=== PATIENT | male | born 1945 | race Caucasian/White ===

== ENCOUNTER 2017-09-02 13:18 | Inpatient (IN) | payer OTHER, BC, MEDICARE ==
[~2017-09-02] VITALS: Ht 193 cm; Wt 107.0 kg
[2017-09-02 14:15] LABS: ABSOLUTE BASOPHIL COUNT 0.1 /CUMM (0.0-0.2); ABSOLUTE EOSINOPHIL COUNT 0.2 /CUMM (0.0-0.7); ABSOLUTE GRANULOCYTE CT 4.6 /CUMM (1.4-6.5); ABSOLUTE LYMPH COUNT 0.8 /CUMM (1.2-3.4); ABSOLUTE MONOCYTE COUNT 0.3 /CUMM (0.10-0.60); BASOPHIL % 1.2 % (0.0-2.0); EOSINOPHIL % 3.8 % (0-5); GRANULOCYTE % 76.1 % (42.2-75.2); HEMATOCRIT 42.4 % (42-52); MEAN CORPUSCULAR HGB 28.7 PG (27.0-31.0); MEAN CORPUSCULAR HGB CONC 34.1 G/DL (33.0-37.0); MEAN CORPUSCULAR VOLUME 84.2 FL (80.0-94.0); MEAN PLATELET VOLUME 10.8 FL (7.4-10.4); RBC DISTRIBUTION WIDTH 16.1 % (11.5-14.5); RED BLOOD CELL CT 5.04 /CUMM (4.70-6.10)
[2017-09-02 14:33] LABS: PLATELET COUNT 110 /CUMM (130-400)
[2017-09-02 14:34] LABS: WHITE BLOOD CELL COUNT 6.6 /CUMM (4.8-10.8)
--- NOTE | 2017-09-02 17:08 | ED AMS/SEIZURE/WEAK/DIZZY ---
History of Present Illness General Chief Complaint: Dizziness Stated Complaint: DIZZY X 2 HRS Source: patient, family Exam Limitations: no limitations Vital Signs & Intake/Output Vital Signs & Intake/Output Vital Signs Date Time Temp Pulse Resp B/P B/P Pulse O2 O2 Flow FiO2 Mean Ox Delivery Rate 09/02 2228 98.0 78 18 125/63 98 Room Air 09/02 1934 69 18 132/85 98 Room Air 09/02 1748 98.0 62 18 133/75 97 Room Air Room Air 09/02 1705 Room Air 09/02 1354 96.4 65 15 114/73 97 Room Air Room Air Allergies Coded Allergies: MDX - Clarithromycin (From Biaxin) (09/15/10) MDX - Contrast Media, Iodine Relate (Contrast Media, Iodine Related) (IV CONTRAST-HIVES 09/15/10) IV CONTRAST MDX - Dexbrompheniramine (Dexbrompheniramine) (09/22/10) MDX - Pseudoephedrine (Pseudoephedrine) (09/22/10) Uncoded Allergies: BIRDS/CATS (09/20/10) GRASS/TREES (09/20/10) MOLD (09/20/10) SEASONAL (09/20/10) Triage Note: PT TO ED FOR C/C OF SEVERE DIZZINESS X 2 HOURS. PT WAS AT [place] TO GET OUTPATIENT MRI OF BRAIN ORDERED BY DR. MAYERS TO R/O MENIERES DISEASE. PT REPORTS EPISODES OF DIZZINESS HAVE STARTED SINCE APRIL. +NAUSEA. EPISODES OF DIZZINESS LAST X 1.5 DAYS WHEN THEY OCCUR. Triage Nurses Notes Reviewed? yes Onset: Abrupt Duration: hour(s): (3), changing over time, continues in ED, getting worse Timing: single episode today Injury Environment: home Severity: moderate, severe No Modifying Factors: none HPI: 71-year-old male past medical history of neuropathy, hypothyroidism, hyperlipidemia presents for evaluation of dizziness nausea and vomiting. Patient reports that symptoms started several hours for presentation. Reports extreme dizziness with any type of movement especially his eyes or his head. He is unable to walk due to the dizziness. He also reports multiple episodes of nausea and vomiting. He has had multiple similar episodes over the past several months. He seen an ear nose and throat doctor and being worked up for Mnire's disease. There is no chest pain shortness of breath or syncope. No abdominal pain back pain or urinary symptoms. No 1 sided weakness slurred speech or blurred vision. No head trauma. Patient tried taking meclizine at 10 AM without any improvement. (Cristopher Simmons) Past History Travel History Traveled to [place] past 21 day No Medical History Any Pertinent Medical History? see below for history Neurological: NEUROPATHY EENT: NONE Cardiovascular: hyperlipidemia Endocrine: HYPOTHYROIDISM Tetanus Vaccine: 02/16/13 Surgical History Surgical History: non-contributory Psychosocial History Who do you live with Spouse Services at Home None What is your primary language Guatemalan Tobacco Use: Current Daily Use Daily Tobacco Use Amount/Type: Cigar or Pipe use daily ETOH Use: occasional use Illicit Drug Use: denies illicit drug use Family History Hx Contributory? No (Cristopher Simmons) Review of Systems Review of Systems Constitutional: Reports: no symptoms. EENTM: Reports: no symptoms. Respiratory: Reports: no symptoms. Cardiovascular: Reports: no symptoms. GI: Reports: see HPI, nausea, vomiting. Genitourinary: Reports: no symptoms. Musculoskeletal: Reports: no symptoms. Skin: Reports: no symptoms. Neurological/Psychological: Reports: see HPI (dizzy lightheaded). Hematologic/Endocrine: Reports: no symptoms. Immunologic/Allergic: Reports: no symptoms. All Other Systems: Reviewed and Negative (Cristopher Simmons) Physical Exam Physical Exam General Appearance: well developed/nourished, no apparent distress, alert, awake Head: atraumatic, normal appearance Eyes: Bilateral: normal appearance, PERRL, EOMI. Ears, Nose, Throat: normal pharynx, normal ENT inspection, hearing grossly normal Neck: normal inspection, supple, full range of motion Respiratory: normal breath sounds, chest non-tender, no respiratory distress, lungs clear Cardiovascular: regular rate/rhythm, normal peripheral pulses Peripheral Pulses: 2+ radial (R), 2+ radial (L) Gastrointestinal: soft, non-tender Back: normal inspection, normal range of motion Extremities: normal range of motion Neurologic/Psych: no motor/sensory deficits, awake, alert, oriented x 3, normal gait, normal mood/affect, cerebellar function intact, cranial nerves II through 12 grossly intact Skin: intact, normal color, warm/dry Lymphatic: no anterior cervical nolan Core Measures ACS in differential dx? No CVA/TIA Diagnosis No Sepsis Present: No Sepsis Focused Exam Completed? No (Black PA,Cristopher) Progress Differential Diagnosis: arrythmia, anemia, benign positional vertigo, CVA/stroke , dehydration, electrolyte imbalance, hypoglycemia, intracranial Hem., intracranial mass/tumor, migraine NUNEZ, pneumonia, postural hypotension, presyncope, post-traumatic vertigo, sepsis, seizure disorder, subarachnoid Hem., UTI/pyelo Plan of Care: Orders Procedure Date/time Status Nothing by Mouth 09/03 B Active Saline Lock 09/02 2137 Active Misc Message 09/02 2137 Active ED Holding Orders 09/02 2137 Active Admit to inpatient 09/02 2137 Active Vital Signs 09/02 2137 Active Code Status 09/02 2137 Active EKG 09/02 135 Active URINALYSIS 09/03 1331 Complete TROPONIN LEVEL 09/03 1331 Complete COMPREHENSIVE METABOLIC PANEL 09/03 1331 Complete CBC WITHOUT DIFFERENTIAL 09/03 1331 Complete Laboratory Tests 09/02/17 1636: Urine Color YEL, Urine Clarity CLEAR, Urine pH 6.0, Ur Specific Mclaughlin 1.020, Urine Protein NEG, Urine Ketones NEG, Urine Nitrite NEG, Urine Bilirubin NEG, Urine Urobilinogen 0.2, Ur Leukocyte Esterase NEG, Ur Microscopic EXAM NOT REQUIRED, Urine Hemoglobin NEG, Urine Glucose NEG 09/02/17 1406: Anion Gap 10, Estimated GFR > 60, BUN/Creatinine Ratio 16.3, Glucose 106 H, Calcium 9.0, Total Bilirubin 0.7, AST 18, ALT 29, Alkaline Phosphatase 52, Troponin I < 0.01, Total Protein 6.8, Albumin 3.9, Globulin 2.9, Albumin/ Globulin Ratio 1.3, CBC w Diff NO MAN DIFF REQ, RBC 5.04, MCV 84.2, MCH 28.7, MCHC 34.1, RDW 16.1 H, MPV 10.8 H, Gran % 76.1 H, Lymphocytes % 13.2 L, Monocytes % 5.7, Eosinophils % 3.8, Basophils % 1.2, Absolute Granulocytes 4.6, Absolute Lymphocytes 0.8 L, Absolute Monocytes 0.3, Absolute Eosinophils 0.2, Absolute Basophils 0.1 Patient seen and evaluated. He is here with vertigo he's had similar symptoms in the past. He is neurologically intact. His no chest pain or shortness of breath. He was supposed TO HAVE AN MRI done today ordered by his ear nose and throat doctor Dr. Mayers. However due to patient's dizziness he was unable tolerate the MRI sooner sent here for further evaluation. We'll check an MRI of the brain basic labs EKG. Patient medicated with Ativan and meclizine and Zofran. Also IV fluids. Blood work does not show any significant acute findings urinalysis negative. MRI of the brain is also not show any acute findings. Patient remains relatively intact. Attended ambulate patient multiple times however he was unable to. He had an unsteady gait he is a fall risk. If he is sent home he will likely fall creating further injury. She will be admitted to the hospital for further evaluation of gait instability and vertigo. He'll require physical therapy, case management, IV fluids, IV antiemetics, IV Ativan, meclizine, ear nose and throat. Case discussed with Dr. Mahan he agrees. Diagnostic Imaging: Viewed by Me: MRI. Discussed w/RAD: MRI. Radiology Impression: PATIENT: JOLEEN NORWOOD PRESENT AGE: 71 PATIENT ACCOUNT NO: [id number] : 43 LOCATION: [facility] ([place] ORDERING PHYSICIAN: Alida LAGUNA SERVICE DATE: 09/02/17 EXAM TYPE : MRI - MRI-HEAD W/O UZMA EXAMINATION: MR BRAIN WITHOUT CONTRAST CLINICAL INFORMATION: Distally, tinnitus and vomiting. Meniere's disease. COMPARISON: CT scan of the head 02/16/2013. TECHNIQUE: MRI of the brain without contrast was obtained using routine sequences. Evaluation is limited due to lack of intravenous contrast. FINDINGS: The VII and VIII cranial nerve complexes are normal in course and caliber. No signal abnormality is visualized within the inner ear structures on the axial T1-weighted sequence. Fluid signal is preserved within the cochlea, semicircular canals, and vestibule on the high- resolution axial CISS sequence. No cerebellopontine angle lesion is noted. No diffusion abnormality is seen. The study redemonstrates the asymmetry of the bodies of the lateral ventricles, larger on the right and unchanged. Brain parenchymal signal is unremarkable. No mass effect or midline shift is evident. No extra-axial fluid collections are noted. The brainstem and cerebellum are normal. The craniovertebral junction, marrow signal, and midline structures are normal. The visualized portions of the major intracranial flow-voids at the level of the [place] are preserved. There have been bilateral ocular lens extractions. The dural venous sinus flow-voids are maintained. The mastoid air cells and paranasal sinuses are well-aerated. IMPRESSION: 1. No acute bleeds or infarcts. No masses are demonstrated. 2. The internal auditory canals and CP angles appear unremarkable on the available images. 3. Asymmetry of the bodies of the lateral ventricles is unchanged. DICTATED BY: Gabriel Obrien MD DATE/TIME DICTATED:09/02/171802 [employer] ASSEMBLER:SINCERE DATE/TIME TRANSCRIBED:1802 CONFIDENTIAL, DO NOT COPY WITHOUT APPROPRIATE AUTHORIZATION. < Electronically signed in Other Vendor System> SIGNED BY: Gabriel Obrien MD 1811 Initial ED EKG: normal sinus rhythm, LEFT AXIS DEVIATION (Cristopher Simmons) Departure Departure Disposition: STILL A PATIENT Condition: Stable Clinical Impression Primary Impression: Vertigo Referrals: Davina Burr APRN (PCP/Family) Departure Forms: Customer Survey General Discharge Information Admission Note Spoke With: Meliton Barnard MD Documentation of Exam: Documentation of any treatments & extenuating circumstances including Concerns Regarding Discharge (functional status, medication knowledge or non-compliance, living conditions, etc.) that warrant an admission rather than observation: [ Patient is unable to ambulate despite being in the emergency department for 7 hours and receiving multiple medications. He is a fall risk. He will require physical therapy, case management, serial labs, neurology consult, ENT consult,] (Cristopher Simmons) PA/AIR CONDITIONING SERVICE TECHNICIAN Co-Sign Statement Statement: ED Attending supervision documentation- [x] I saw and evaluated the patient. I have also reviewed all the pertinent lab results and diagnostic results. I agree with the findings and the plan of care as documented in the PA's/AIR CONDITIONING SERVICE TECHNICIAN's documentation. 09/02/17, 20:36... pt with intractable vertigo, unable to ambulate despite multiple rounds of supportive medications.. merits admission, neuro consult [] I have reviewed the ED Record and agree with the PA's/AIR CONDITIONING SERVICE TECHNICIAN's documentation. [] Additions or exceptions (if any) to the PAs/AIR CONDITIONING SERVICE TECHNICIAN's note and plan are summarized below: [] (Kalli TAPIA,[place])
--- NOTE | 2017-09-02 18:12 | MRI REPORT ---
EXAMINATION: MR BRAIN WITHOUT CONTRAST CLINICAL INFORMATION: Distally, tinnitus and vomiting. Meniere's disease. COMPARISON: CT scan of the head 02/16/2013. TECHNIQUE: MRI of the brain without contrast was obtained using routine sequences. Evaluation is limited due to lack of intravenous contrast. FINDINGS: The VII and VIII cranial nerve complexes are normal in course and caliber. No signal abnormality is visualized within the inner ear structures on the axial T1-weighted sequence. Fluid signal is preserved within the cochlea, semicircular canals, and vestibule on the high-resolution axial CISS sequence. No cerebellopontine angle lesion is noted. No diffusion abnormality is seen. The study redemonstrates the asymmetry of the bodies of the lateral ventricles, larger on the right and unchanged. Brain parenchymal signal is unremarkable. No mass effect or midline shift is evident. No extra-axial fluid collections are noted. The brainstem and cerebellum are normal. The craniovertebral junction, marrow signal, and midline structures are normal. The visualized portions of the major intracranial flow-voids at the level of the [place] are preserved. There have been bilateral ocular lens extractions. The dural venous sinus flow-voids are maintained. The mastoid air cells and paranasal sinuses are well-aerated. IMPRESSION: 1. No acute bleeds or infarcts. No masses are demonstrated. 2. The internal auditory canals and CP angles appear unremarkable on the available images. 3. Asymmetry of the bodies of the lateral ventricles is unchanged.
--- NOTE | 2017-09-02 20:39 | RADIOLOGY REPORT ---
EXAMINATION: XR PORTABLE CHEST CLINICAL INFORMATION: Dizziness. CHF. COMPARISON: Chest x-ray 08/25/2013 TECHNIQUE: Portable frontal view of the chest was obtained. FINDINGS: Lungs are clear. No pulmonary vascular congestion. There is no pleural effusion. The heart size is normal. The cardiac and mediastinal contours are normal. . There are multilevel degenerative changes of dorsal spine. Orthopedic plate and screw at lower cervical spine. IMPRESSION: No acute abnormality the chest.
--- NOTE | 2017-09-02 21:16 | History & Physical ---
Maile Wisdom MD,[facility] 09/02/172115: General Information and HPI MD Statement: I have seen and personally examined JOLEEN NORWOOD and documented this H&P. The patient is a 71 year old M who presented with a patient stated chief complaint of dizziness]. Source of Information: patient, old records History of Present Illness: Patient is 70-year-old male with PMH of hypothyroidism, hypercholesterolemia, h/ o spinal surgery, L arm neuropathic pain, chronic thrombocytopenia, Left ear hearing loss presented to the ED with chief complaint of dizziness. History taking was minimally limited as patient couldn't remember his medication list or his doctors name. Briefly patient started to have severe vertigo earlier in the morning today. He noted that he was able to cut the grass and eat without any problems, however later he started to see the objects are spinning in the room. The vertigo increased with motion of the head or eyes, and was so severe that he could not walk without his wifes assistance. He also had multiple episodes of nausea and vomiting. He reported hearing loss in the left ear and tinnitus but denied any fullness. He also denied any change in vision, double vision, change in motor or SENSORY, or speech. He went to Dr Mayers (PCP Kelsey coffey, Dr douglas TENA) and was sent to have an MRI done. However he had severe vertigo and was not able to stay in the MRI center and was transferred to ED. According to patient he was having workup for Mnire disease. This was 4th episode he experienced and was very similar to the previous ones. (previous episodes: April 2017, June 2017 , last ). Review of system is negative except as noted above, no chest pain, no shortness of breathing, no upper respiratory tract infection recently, no headache. In baseline he is independent in ADLs, family history negative for similar symptoms or other pathologies except multiple mieloma in his father. He smokes 4 cigarettes for the last 40 years and eats regular food. Allergies/Medications Allergies: Coded Allergies: MDX - Clarithromycin (From Biaxin) (09/15/10) MDX - Contrast Media, Iodine Relate (Contrast Media, Iodine Related) (IV CONTRAST-HIVES 09/15/10) IV CONTRAST MDX - Dexbrompheniramine (Dexbrompheniramine) (09/22/10) MDX - Pseudoephedrine (Pseudoephedrine) (09/22/10) Uncoded Allergies: BIRDS/CATS (09/20/10) GRASS/TREES (09/20/10) MOLD (09/20/10) SEASONAL (09/20/10) Past History Travel History Traveled to [place] past 21 day No Medical History Neurological: NEUROPATHY EENT: NONE Cardiovascular: hyperlipidemia Endocrine: HYPOTHYROIDISM Tetanus Vaccine: 02/16/13 Surgical History Surgical History: Bilateral knee surgery Past Family/Social History Psychosocial History Services at Home: None ETOH Use: occasional use Illicit Drug Use: denies illicit drug use Review of Systems Review of Systems Constitutional: Reports: see HPI. Exam & Diagnostic Data Last 24 Hrs of Vital Signs/I&O Vital Signs Date Time Temp Pulse Resp B/P B/P Pulse O2 O2 Flow FiO2 Mean Ox Delivery Rate 09/02 2228 98.0 78 18 125/63 98 Room Air 09/02 1934 69 18 132/85 98 Room Air 09/02 1748 98.0 62 18 133/75 97 Room Air Room Air 09/02 1705 Room Air 09/02 1354 96.4 65 15 114/73 97 Room Air Room Air Intake & Output 09/03 0800 09/03 0000 09/02 1600 Intake Total 500 Output Total 200 Balance 300 Intake, IV 500 Output, Urine 200 Patient 238 lb Weight Weight Reported by Patient Measurement Method Physical Exam General Appearance Alert, Oriented X3, Cooperative, No Acute Distress Skin No Significant Lesion Skin Temp/Moisture Exam: Warm/Dry Sepsis Skin Exam (color): Normal for Ethnicity HEENT Atraumatic, PERRLA, EOMI, pupils reactive to light Neck No JVD Cardiovascular Normal S1, Normal S2 Lungs Clear to Auscultation, Normal Air Movement Abdomen Soft, No Tenderness Neurological Normal Speech, Strength at 5/5 X4 Ext, Cranial Nerves 3-12 NL, finger to nose positive, Romberg: lost balance with closed eyes, no nystagmus appreciated Extremities No Edema Last 24 Hrs of Labs/[place]: Laboratory Tests 09/02/17 1636: Urine Color YEL, Urine Clarity CLEAR, Urine pH 6.0, Ur Specific [place] 1.020, Urine Protein NEG, Urine Ketones NEG, Urine Nitrite NEG, Urine Bilirubin NEG, Urine Urobilinogen 0.2, Ur Leukocyte Esterase NEG, Ur Microscopic EXAM NOT REQUIRED, Urine Hemoglobin NEG, Urine Glucose NEG 09/02/17 1406: Anion Gap 10, Estimated GFR > 60, BUN/Creatinine Ratio 16.3, Glucose 106 H, Calcium 9.0, Total Bilirubin 0.7, AST 18, ALT 29, Alkaline Phosphatase 52, Troponin I < 0.01, Total Protein 6.8, Albumin 3.9, Globulin 2.9, Albumin/ Globulin Ratio 1.3, CBC w Diff NO MAN DIFF REQ, RBC 5.04, MCV 84.2, MCH 28.7, MCHC 34.1, RDW 16.1 H, MPV 10.8 H, Gran % 76.1 H, Lymphocytes % 13.2 L, Monocytes % 5.7, Eosinophils % 3.8, Basophils % 1.2, Absolute Granulocytes 4.6, Absolute Lymphocytes 0.8 L, Absolute Monocytes 0.3, Absolute Eosinophils 0.2, Absolute Basophils 0.1 Assessment/Plan Assessment: Patient is 70-year-old male presented for vertigo chronic hearing loss in left ear, occasional tinnitus ambulation limited due to imbalance PMH: hypothyroidism, hypercholesterolemia, h/o spinal surgery, L arm neuropathic pain, chronic thrombocytopenia, Left ear hearing loss VS, Ph Ex at admission: insignificant Labs at admission: BEP insignificant, C BC PLT 110 UA insignificnat Imagings at admission: Chest x-ray No acute finding Head MRI 1. No acute bleeds or infarcts. No masses are demonstrated. 2. The internal auditory canals and CP angles appear unremarkable on the available images. 3. Asymmetry of the bodies of the lateral ventricles is unchanged. Patient was admitted to floor for management of following conditions: Vertigo most likely peripheral, menier on top of DD chronic medical conditions: Low Plt - admit to GM floor - meclizine - Hold on more antihistamines with anticholinergic effect considering old age male - consider ativan if no improvement, consider old age - PT -ENT courtesy consult -Continue home medication after confirm -Consider Zofran for nausea FC Heart healthy diet (limit sodium) DVT ppx: alps As Ranked By This Provider Problem List: 1. Vertigo Core Measures/Misc (01/06) Acute Coronary Syndrome ACS Diagnosis: No Congestive Heart Failure Congestive Heart Failure Diagnosis No Cerebrovascular Accident CVA/TIA Diagnosis: No VTE (View Protocol) VTE Risk Factors Age>40 No Mechanical VTE Prophylaxis d/t N/A MechProphylax Ordered No VTE Pharm Prophylaxis d/t Medical Contraindication (low PLT) Sepsis (View protocol) Sepsis Present: No Jodi TAPIA,[facility] 09/03/17 0214: General Information and HPI Allergies/Medications Home Med list Atorvastatin Calcium 10 MG TABLET 1 TAB PO DAILY HIGH CHOLESTROL (Reported) Calcium Carbonate (Calcium) (Unknown Strength) TABLET (Unknown Dose) VITAMIN SUPPORT (Reported) Cholecalciferol (Vitamin D3) (Vitamin D3) 1,000 UNIT CAPSULE 1 CAP PO DAILY VITAMIN SUPPORT (Reported) Levothyroxine Sodium 137 MCG TABLET 1 TAB PO DAILY THYROID PROBLEMS (Reported ) Meclizine HCl 25 MG TABLET EAR PROBLEMS (Reported) Resident Review Statement Resident Statement: examined this patient, discussed with internet cafe manager, agreed with internet cafe manager, reviewed EMR data (avail), discussed with nursing Other Findings: Patient is 71-year-old male with past medical history significant for lumbar laminectomy and cervical fusion, neuropathy, hypothyroidism, hyperlipidemia, chronic thrombocytopenia, left ear hearing loss, questionable Meiniere's disease follow-up with Dr Mayers who presented to ED with chief complaint of intractable dizziness and nausea. Patient reported new onset of severe dizziness, nausea and vomiting since April 2017. He reported 3 previous episodes since April. Had hearing test positive for left side hearing loss and was scheduled for MRI head. Patient reported being in regular state of health up to this morning, was able to have regular daily activity including exercise and grass cutting and while resting later in the day started to have severe dizziness associated with nausea. Patient tried to go to the MRI appointment however was in severe distress from the vertigo and went back home. Patient was not able to stand up and hold his balance from the vertigo and was brought to ED by his daughter for evaluation. Patient denied any precipitating factors, he is very independent and active on daily basis, exercise daily without any significant dizziness. However he reported worsening dizziness with eye and head movement. Patient reported recent onset of tinnitus, denied weakness, numbness, headaches or blurry vision. Patient was prescribed meclizine however did not report any significant symptom relief. On admission vital signs temperature 96.4, pulse 65, blood pressure 114/73, saturating 97% on room air Exam Patient alert oriented 3, no neck rigidity, cranial nerves intact, motor and sensory intact 4, cerebellar function intact, Romberg sign positive Labs white blood cell 6.6, H&H 14.5/42.4, platelet 110, sodium 143, potassium 4.1, BUN/creatinine 13/0.8, UA negative Chest x-ray No acute abnormality the chest. MRI head 1. No acute bleeds or infarcts. No masses are demonstrated. 2. The internal auditory canals and CP angles appear unremarkable on the available images. 3. Asymmetry of the bodies of the lateral ventricles is unchanged. In comparison to CAT scan obtained 2013 after head injury Problem list #Vertigo associated with hearing loss, tinnitus and nausea suggestive for possible Meiniere's disease #Hypothyroidism #Neuropathy #Chronic thrombocytopenia Plan Admit to general medical floor Vitals every shift Orthostatic measurement Continue meclizine 25 mg 3 times daily Consider Ativan if symptoms persist Courtesy call to ENT Dr. Dr Mayers Check vitamin B12 and vitamin D Check liver function test PT evaluation and treat (vestibular rehabilitation) Please confirm medication a.m. for now we continue with atorvastatin and Synthroid based on reclaim history Fall risk precaution DVT prophylaxis Alps Diet heart healthy (salt restriction is recommended in pt with possible Meiniere 's disease Code full Akil TAPIA, [facility] 09/03/17 0416: Attending MD Review Statement Attending Statement Attending MD Statement: examined this patient, discuss w/resident/PA/TRACK BROOM OPERATOR, agreed w/resident/PA/TRACK BROOM OPERATOR, reviewed images, amended to note Attending Assessment/Plan: 71 yo M with h/o hypothyroidism, HLD, chronic thrombocytopenia presented to the ER for intractable dizziness, associated with nausea and vomiting. Patient has been following with Dr. Mayers for evaluation of dizziness. This is his 4th episode since Apr 2017. He has been diagnosed with left sided hearing loss and reports occasional tinnitus. There is a suspicion for Meniere's disease , hence an MRI was planned for today. However, patient could not make it to the appointment due to dizziness and unsteady gait. Symptoms are worse with position change and they last about 1-2 days when they occur. While in the ER, patient received ativan, zofran and meclizine with some relief. Vitals stable. Exam does not reveal horizontal or vertical nystagmus. Patient is able to sit up from laying position without dizziness. On standing, he is unsteady on his feet, reports dizziness. Romberg's test positive. Nonfocal neuro exam otherwise. Labs: Plt 110, glucose 106. UA negative. MRI brain: no acute bleed or infarct. Internal auditory canal and CP angles unremarkable. CXR: no acute abnormality. EKG: sinus rhythm, LAD, no acute changes. Assessment and plan: 1. Intractable vertigo, possible Meniere's disease 2. Gait instability 3. Hypothyroidism 4. Chronic thrombocytopenia of unclear etiology - Admit to General medicine - Check orthostats - Fall precautions - Initiate meclizine TID - Consult ENT Dr. Mayers - PT eval - Can add ativan or scopolamine patch as needed - Confirm and resume home meds in AM DVT ppx Alps. Full code.
--- NOTE | 2017-09-02 23:34 | Admission Certification ---
Admission Certification Certification Statement - As attending physician, I certify that at the time of - admission, based on clinical presentation, severity of - symptoms, need for further diagnostic testing and - therapeutic interventions, and risk of adverse outcomes - without in-hospital treatment, in my clinical assessment, - this patient requires an acute hospital stay for a minimum - of two nights or longer. I have also considered psychsocial - factors such as support system, advanced age, financial - issues, cognitive issues, and failed out-patient treatments, - past re-admission history, safety of patient, and lack of - compliance as applicable. Specific rationale supporting this admission is: Intractable vertigo, gait instability.
[2017-09-03] MEDS ORDERED: CALCIUM500 M1 PO (01:00)
[2017-09-03] MEDS ORDERED: MECLIZINE HCL25 MG PO (01:01)
[2017-09-03] MEDS ORDERED: VITAMIN D31000 UNI1 PO (01:01)
[2017-09-03] MEDS ORDERED: LEVOTHYROXINE137 MCG PO (01:02)
[2017-09-03] MEDS ORDERED: ATORVASTATIN CA10 M1 PO (01:02)
[2017-09-03 01:27] VITALS: BP 138/72
[2017-09-03 05:56] VITALS: BP 126/78
--- NOTE | 2017-09-03 07:23 | PN- Housestaff ---
Shane TAPIA,[facility] 09/03/17 0722: Subjective Follow-up For: Vertigo associated with hearing loss, tinnitus and nausea suggestive for possible Meiniere's disease Subjective: Mr Navarro was seen and examined this morning. Resting comfortably in bed. He is currently eating breakfast. Denies any issues overnight. States that his dizziness has markedly improved. Subsequently scheduled to work with physical therapy later today. On our second visit with the patient, he states that he feels great and would like to discharged at the soonest. His Genesis was present at bedside. Review of Systems Constitutional: Reports: see HPI. Objective Last 24 Hrs of Vital Signs/I&O Vital Signs Date Time Temp Pulse Resp B/P B/P Pulse O2 O2 Flow FiO2 Mean Ox Delivery Rate 09/03 0556 97.5 63 20 126/78 99 Room Air 09/03 0127 98.1 69 22 138/72 96 Room Air 09/02 2228 98.0 78 18 125/63 98 Room Air 09/02 1934 69 18 132/85 98 Room Air 09/02 1748 98.0 62 18 133/75 97 Room Air Room Air 09/02 1705 Room Air 09/02 1354 96.4 65 15 114/73 97 Room Air Room Air Intake & Output 09/03 1600 09/03 0800 09/03 0000 Intake Total 400 200 500 Output Total 750 200 Balance 400 -550 300 Intake, IV 0 500 Intake, Oral 400 200 Output, Urine 750 200 Patient 107.048 kg Weight Weight Reported by Patient Measurement Method Physical Exam General Appearance: Alert, Oriented X3 Skin: No Rashes HEENT: Mucous Membr. moist/pink Lymphatic: Axillary nl Cardiovascular: Regular Rate, Normal S1, Normal S2 Lungs: Clear to Auscultation Abdomen: Normal Bowel Sounds, Soft Neurological: Normal Gait, Normal Speech, Strength at 5/5 X4 Ext, Normal Tone, Sensation Intact, Cranial Nerves 3-12 NL Extremities: No Clubbing, No Cyanosis, No Edema Vascular: Normal Pulses Current Medications: Current Medications Sig/Jo Start time Last Medication Dose Route Stop Time Status Admin Atorvastatin Calcium 10 MG DAILY 09/03 0900 DCD 09/03 PO 1004 Levothyroxine Sodium 0.137 MG DAILY AC 09/03 0700 DCD 09/03 PO 0743 Lorazepam 1 MG ONCE ONE 09/02 1600 DC 09/02 IV 09/02 1601 1548 Lorazepam 0 .STK-MED ONE 09/02 1556 DC .ROUTE Meclizine HCl 25 MG TID 09/03 0900 DCD 09/03 PO 1004 Meclizine HCl 0 .STK-MED ONE 09/02 1939 DC PO Meclizine HCl 25 MG ONCE ONE 09/02 1915 DC 09/02 PO 09/02 191 193 Ondansetron HCl 0 .STK-MED ONE 09/02 1549 DC .ROUTE Ondansetron HCl 4 MG ONCE ONE 09/02 1415 DC 09/02 IV 09/02 1416 1548 Sodium Chloride 500 ML BOLUS ONE 09/02 1415 DC 09/02 IV 09/02 1514 1645 Last 24 Hrs of Lab/[place] Results Last 24 Hrs of Labs/[place]: Laboratory Tests 09/03/17 0611: Anion Gap 10, Estimated GFR > 60, BUN/Creatinine Ratio 12.9, CBC w Diff NO MAN DIFF REQ, RBC 4.80, MCV 85.4, MCH 29.0, MCHC 34.0, RDW 16.6 H, MPV 10.8 H, Gran % 62.6, Lymphocytes % 21.9, Monocytes % 8.7, Eosinophils % 6.0 H, Basophils % 0.8, Absolute Granulocytes 3.9, Absolute Lymphocytes 1.4, Absolute Monocytes 0.5, Absolute Eosinophils 0.4, Absolute Basophils 0.1 09/02/17 1636: Urine Color YEL, Urine Clarity CLEAR, Urine pH 6.0, Ur Specific [place] 1.020, Urine Protein NEG, Urine Ketones NEG, Urine Nitrite NEG, Urine Bilirubin NEG, Urine Urobilinogen 0.2, Ur Leukocyte Esterase NEG, Ur Microscopic EXAM NOT REQUIRED, Urine Hemoglobin NEG, Urine Glucose NEG 09/02/17 1406: Anion Gap 10, Estimated GFR > 60, BUN/Creatinine Ratio 16.3, Glucose 106 H, Calcium 9.0, Total Bilirubin 0.7, AST 18, ALT 29, Alkaline Phosphatase 52, Troponin I < 0.01, Total Protein 6.8, Albumin 3.9, Globulin 2.9, Albumin/ Globulin Ratio 1.3, Vitamin B12 302, 25-OH Vitamin D Total 39.7, CBC w Diff NO MAN DIFF REQ, RBC 5.04, MCV 84.2, MCH 28.7, MCHC 34.1, RDW 16.1 H, MPV 10.8 H, Gran % 76.1 H, Lymphocytes % 13.2 L, Monocytes % 5.7, Eosinophils % 3.8, Basophils % 1.2, Absolute Granulocytes 4.6, Absolute Lymphocytes 0.8 L, Absolute Monocytes 0.3, Absolute Eosinophils 0.2, Absolute Basophils 0.1 Assessment/Plan Assessment: Patient is 71-year-old male with past medical history significant for lumbar laminectomy and cervical fusion, neuropathy, hypothyroidism, hyperlipidemia, chronic thrombocytopenia, left ear hearing loss, questionable Meiniere's disease follow-up with Dr Mayers who presented to ED with chief complaint of intractable dizziness and nausea He was managed on the general medical service overnight and is subsequently requesting to be discharged later today. #Vertigo associated with hearing loss, tinnitus and nausea suggestive for possible Meiniere's disease #Hypothyroidism #Neuropathy #Chronic thrombocytopenia Plan Vitals every shift Continue meclizine 25 mg 3 times daily Consider Ativan if symptoms persist Courtesy call to ENT Dr. Dr Mayers, patient can [facility] follow up as an outpatient. Check vitamin B12 and vitamin D Check liver function test PT worked with the patient, no abnormalities on vestibular exam noted. Fall risk precaution DVT prophylaxis Alps Diet heart healthy Code full Problem List: 1. Vertigo 2. Encounter for removal of alley 3. Hyperlipidemia Pain Ratin Pain Location: No Pain Pain Goal: Remain pain free Pain Plan: Tylenol PRN Tomorrow's Labs & Rationales: No LaBS GordonBuffyalmita 09/03/17 1035: Attending MD Review Statement Attending Statement Attending MD Statement: examined this patient, discuss w/resident/PA/IT SERVICE MANAGER, agreed w/resident/PA/IT SERVICE MANAGER, discussed with family, reviewed EMR data (avail), discussed with nursing, discussed with case mgmt Attending Assessment/Plan: Dizziness /vertigo- improved remarkably. Was able to do stairs with PT and walking independently. Pt wants to go home. Will be dced home and will f/u with ENT clinic as an outpatient. pt has meclizine at home. will give him zofran prescription at discharge. d/w pt and pts at bedside the care plan. d/w pt and pts at bedside the care plan.
[2017-09-03 08:15] LABS: ABSOLUTE BASOPHIL COUNT 0.1 /CUMM (0.0-0.2); ABSOLUTE EOSINOPHIL COUNT 0.4 /CUMM (0.0-0.7); ABSOLUTE GRANULOCYTE CT 3.9 /CUMM (1.4-6.5); ABSOLUTE LYMPH COUNT 1.4 /CUMM (1.2-3.4); ABSOLUTE MONOCYTE COUNT 0.5 /CUMM (0.10-0.60); BASOPHIL % 0.8 % (0.0-2.0); GRANULOCYTE % 62.6 % (42.2-75.2); MEAN CORPUSCULAR VOLUME 85.4 FL (80.0-94.0); MEAN PLATELET VOLUME 10.8 FL (7.4-10.4); PLATELET COUNT 110 /CUMM (130-400); RBC DISTRIBUTION WIDTH 16.6 % (11.5-14.5); WHITE BLOOD CELL COUNT 6.3 /CUMM (4.8-10.8)
--- NOTE | 2017-09-03 09:38 | Patient Discharge Instructions ---
Discharge Instructions General Discharge Information You were seen/treated for: Vertigo/Dizziness Special Instructions: Please follow up with your PCP within one week. Please follow up with Dr Mayers for follow up within one week. We provided you with a referral. Acute Coronary Syndrome Inclusion Criteria At DC or during hospital stay patient has or had the following: ACS DIAGNOSIS No Discharge Core Measures Meds if any: Prescribed or Continued at Discharge Meds if any: NOT Prescribed or Continued at Discharge Congestive Heart Failure Inclusion Criteria At DC or during hospital stay patient has or had the following: CHF DIAGNOSIS No Discharge Core Measures Meds if any: Prescribed or Continued at Discharge Meds if any: NOT Prescribed or Continued at Discharge Cerebrovascular accident Inclusion Criteria At DC or during hospital stay patient has or had the following: CVA/TIA Diagnosis No Discharge Core Measures Meds if any: Prescribed or Continued at Discharge Meds if any: NOT Prescribed or Continued at Discharge Venous thromboembolism Inclusion Criteria VTE Diagnosis No VTE Type NONE VTE Confirmed by (Test) NONE Discharge Core Measures - Per Current guidelines, there needs to be overlap - treatment for the first 5 days of Warfarin therapy. - If discharged on Warfarin prior to 5 days of - overlap therapy, the patient will need to be - assessed for post discharge needs including - *Post discharge parental anticoagulation - *Warfarin and/or parental anticoagulation education - *Follow up date to check INR post discharge At least 5 days overlap therapy as Inpatient No Meds if any: Prescribed or Continued at Discharge Note: Overlap Therapy is Warfarin and Anticoagulant Meds if any: NOT Prescribed or Continued at Discharge
--- NOTE | 2017-09-03 13:25 | Discharge Summary ---
Hospital Course Allergies: Coded Allergies: Iodinated Contrast- Oral and IV Dye (IV CONTRAST - HIVES 09/03/17) clarithromycin (UNKNOWN 09/03/17) dexbrompheniramine (UNKNOWN 09/03/17) pseudoephedrine (UNKNOWN 09/03/17) Uncoded Allergies: BIRDS/CATS (09/20/10) GRASS/TREES (09/20/10) MOLD (09/20/10) SEASONAL (09/20/10) Discharge Instructions Medications at Discharge Discharge Medications: Continue taking these medications: Calcium Carbonate (Calcium) (Unknown Strength) TABLET 1 Tablet ORAL DAILY as needed for Supplement Qty = 30 Comments: NOT GIVEN IN HOSPITAL Cholecalciferol (Vitamin D3) (Vitamin D3) 1,000 UNIT CAPSULE 1 Capsule ORAL DAILY Days = 0 Comments: NOT GIVEN IN HOSPITAL Meclizine HCl (Meclizine HCl) 25 MG TABLET 1 Tablet ORAL EVERY 8 HOURS as needed for Dizziness Qty = 30 Comments: Last Taken: 09/03/17 Time: 10AM Atorvastatin Calcium (Atorvastatin Calcium) 10 MG TABLET 1 Tablet ORAL DAILY Days = 90 Comments: Last Taken: 09/03/17 Time: 10AM Levothyroxine Sodium (Levothyroxine Sodium) 137 MCG TABLET 1 Tablet ORAL DAILY Days = 90 Comments: Last Taken: 09/03/17 Time: 0740AM
== END 2017-09-03 10:31 | DRG 149 ==
LOC: ERH 13:18 → ENTRNSPT 16:25 → CMPTRNSPT 16:51 → 2NB 21:38 → ERHI 21:38 → ENRESERV 09-03 00:19 → CANRESERV 09-03 00:19 → ENRESERV 09-03 00:20 → 2NB 09-03 01:02 → ENPENDDIS 09-03 10:11 → ENTRNSPT 09-03 10:21 → EDTRNSPTSTS 09-03 10:25 → EDTRNSPT 09-03 10:25 → 2NB 09-03 10:31 → CMPTRNSPT 09-03 10:40
PROVIDERS: Physician Assistant Medical; Student in an Organized Health Care Education/Training Program
DX: H81.09 Meniere's disease, unspecified ear (principal); D69.6 Thrombocytopenia, unspecified; R26.81 Unsteadiness on feet; E03.9 Hypothyroidism, unspecified; E78.00 Pure hypercholesterolemia, unspecified; H91.92 Unspecified hearing loss, left ear; G56.92 Unspecified mononeuropathy of left upper limb; Z88.8 Allergy status to other drugs, medicaments and biological substances; Z88.1 Allergy status to other antibiotic agents; Z91.041 Radiographic dye allergy status; Z96.653 Presence of artificial knee joint, bilateral
CPT/HCPCS: 70551; ERO; 36415; 71045; 81003; 82436; 93005; 93010; 96374; 96375; 97112-GO; 97116-GO; 97161-GP; J2405; J7040